=== PATIENT | female | born 1970 | race Two or more races ===

== ENCOUNTER 2016-08-11 08:24 | Emergency (ER) | payer OTHER ==
[~2016-08-11] VITALS: Ht 162.6 cm; Wt 68.0 kg
[2016-08-11 08:29] VITALS: BP 117/77
[2016-08-11] MEDS ORDERED: predniSONE 20 MG TABLET PO ONE (08:45)
[2016-08-11] MEDS ORDERED: HYDROcodone/APAP 5/325MG 1 TAB TABLET PO ONE (08:45)
[2016-08-11] MEDS ORDERED: diazePAM 5 MG TABLET PO ONE (08:45)
--- NOTE | 2016-08-11 08:49 | PHYS DOC ---
Past Medical History Past Medical History: Asthma Past Surgical History: Alcohol Use: None Drug Use: None Adult General Chief Complaint Chief Complaint: BACK INJURY HPI HPI Patient is a 46 year old female with history of asthma who presents today with moderate bilateral low back pain radiating to bilateral lower extremities that began couple minutes prior to coming to the ED. Patient states the pain is worse on movement. She states she had taken a shower this morning in her hotel room and bent over when she suddenly developed severe back pain. She states she was unable to move at all due to the pain. Patient denies any loss of bowel bladder function. Patient is from [place] visiting [facility] patient states she' s had similar pain before. She does not remember what they did for the pain. Review of Systems Review of Systems Constitutional: Denies fever or chills [] Eyes: Denies change in visual acuity, redness, or eye pain [] HENT: Denies nasal congestion or sore throat [] Respiratory: Denies cough or shortness of breath [] Cardiovascular: No additional information not addressed in HPI [] GI: Denies abdominal pain, nausea, vomiting, bloody stools or diarrhea [] : Denies dysuria or hematuria [] Musculoskeletal: bilateral low back pain Integument: Denies rash or skin lesions [] Neurologic: Denies headache, focal weakness or sensory changes [] Endocrine: Denies polyuria or polydipsia [] Current Medications Current Medications Current Medications Medications (Trade) Dose Ordered Sig/Corey Start Time Stop Time Status Last Admin Dose Admin Acetaminophen/ Hydrocodone Bitart (Lortab 5/325) 1 tab 1X ONCE 08/11/16 08:45 08/11/16 08:46 DC 08/11/16 09:02 1 TAB Diazepam (Valium) 5 mg 1X ONCE 08/11/16 08:45 08/11/16 08:46 DC 08/11/16 09:02 5 MG Prednisone (Prednisone) 60 mg 1X ONCE 08/11/16 08:45 08/11/16 08:46 DC 08/11/16 09:01 60 MG Allergies Allergies Allergies Coded Allergies Type Severity Reaction Last Updated Verified ibuprofen Allergy Intermediate 08/11/16 Yes Physical Exam Physical Exam Constitutional: Well developed, well nourished, no acute distress, non-toxic appearance. [] HENT: Normocephalic, atraumatic, bilateral external ears normal, oropharynx moist, no oral exudates, nose normal. [] Eyes: PERRLA, EOMI, conjunctiva normal, no discharge. [] Neck: Normal range of motion, no tenderness, supple, no stridor. [] Cardiovascular:Heart rate regular rhythm, no murmur [] Lungs & Thorax: Bilateral breath sounds clear to auscultation [] Abdomen: Bowel sounds normal, soft, no tenderness, no masses, no pulsatile masses. [] Skin: Warm, dry, no erythema, no rash. [] Back: Diffuse paraspinal muscle tenderness bilateral low lumbar region no midline lumbar tenderness, no CVA tenderness. Positive bilateral leg straight raises Extremities: No tenderness, no cyanosis, no clubbing, ROM intact, no edema. [] Neurologic: Alert and oriented X 3, normal motor function, normal sensory function, no focal deficits noted. [] Psychologic: Affect normal, judgement normal, mood normal. [] Current Patient Data Vital Signs Vital Signs Date Time Temp Pulse Resp B/P (MAP) Pulse Ox O2 Delivery O2 Flow Rate FiO2 08/11/16 08:29 99.2 81 18 99 Room Air 99.2 EKG EKG [] Radiology/Procedures Radiology/Procedures []PROCEDURE: LUMBAR SPINE 2-3V Examination: 2 views of the lumbar spine History: History of low back pain Comparison: None available Findings: The vertebral body heights are maintained. No evidence of listhesis. The facets appear to be well aligned. Impression: No acute osseous findings DICTATED and SIGNED BY: HIRAM WEAVER MD DATE: 08/11/16 0926 CC: FAROOQ HUTTON GED TUTOR; NON,STAFF ~ Course & Med Decision Making Course & Med Decision Making Pertinent Labs and Imaging studies reviewed. (See chart for details) This is a 46-year-old female patient who presents to the ED today with bilateral low back pain radiating to bilateral lower extremities that began today. Patient is visiting from [place]. She is currently residing in a hotel. She has no Cauda Equina symptoms. Lumbar spine x-rays interpreted by radiologist are negative for any acute findings. Patient is not able to take any anti-inflammatories. She states she has asthma and her own primary care doctor will not let her take any anti- inflammatories. Patient will be discharged with Medrol Dosepak, Flexeril and [place], she is up and ambulating in the Ed. She was provided local doctors for follow-up as needed. She is provided return precautions and discharged in stable condition. Jazmyne Disclaimer Jazmyne Disclaimer This electronic medical record was generated, in whole or in part, using a voice recognition dictation system. Departure Departure Impression: Primary Impression: Low back pain Disposition: 01 HOME, SELF-CARE Condition: STABLE Patient Instructions: Back Pain, Adult Additional Instructions: You were seen for acute low back pain with sciatica. Take the prescribed pain medicines as ordered. Follow-up with the primary care doctor or doctor from the list provided in the next 3-7 days. Come back to the Ed if symptoms worsen. Scripts Cyclobenzaprine Hcl (CYCLOBENZAPRINE HCL) 10 Mg Tablet 1 TAB PO TID, #30 TAB Prov: FAROOQ HUTTON APRN 08/11/16 Hydrocodone/Apap 5-325 (NORCO 5-325 TABLET) 1 Each Tablet 1-2 TAB PO Q4-6HRS Y for PAIN, #25 TAB Prov: FAROOQ HUTTON APRN 08/11/16 Methylprednisolone (MEDROL) 4 Mg Tab.ds.pk 1 PKG PO UD, #1 PKG Prov: FAROOQ HUTTON APRN 08/11/16 Problem Qualifiers Primary Impression: Low back pain Chronicity: acute Back pain laterality: bilateral Sciatica presence: with sciatica Sciatica laterality: bilateral sciatica Qualified Codes: M54.42 - Lumbago with sciatica, left side; M54.41 - Lumbago with sciatica, right side FAROOQ HUTTON APRN Aug 11, 2016 08:49
--- NOTE | 2016-08-11 09:29 | RAD ---
Examination: 2 views of the lumbar spine History: History of low back pain Comparison: None available Findings: The vertebral body heights are maintained. No evidence of listhesis. The facets appear to be well aligned. Impression: No acute osseous findings
[2016-08-11] MEDS ORDERED: CYCL10TA2 PO (10:02)
[2016-08-11] MEDS ORDERED: METH4TAB2 PO (10:02)
[2016-08-11] MEDS ORDERED: HYDR-971 PO (10:02)
[2016-08-11 10:05] LABS: GLUCOSE,URINE NEGATIVE (NEG); NITRITE,URINE NEGATIVE (NEG); PH,URINE 6.5; PROTEIN,URINE 100 mg/dL (NEG-TRACE); UROBILINOGEN,URINE 0.2 mg/dL (0.2 mg/dL)
[2016-08-11 10:26] LABS: BACTERIA,URINE FEW /HPF (0-FEW); RBC,URINE TNTC /HPF (0-2); SQUAMOUS EPITHELIAL CELL,UR FEW /LPF
== END 2016-08-11 10:10 | disposition home or self-care (01) ==
LOC: ER 08:24
DX: M54.5 Low back pain (principal); M79.604 Pain in right leg; M79.605 Pain in left leg; J45.909 Unspecified asthma, uncomplicated; Z98.890 Other specified postprocedural states; Z88.6 Allergy status to analgesic agent
CPT/HCPCS: 72100; 81001; 99285; J7512